=== PATIENT | female | born 1970 | race Caucasian/White ===

== ENCOUNTER 2024-07-07 22:39 | Emergency (ER) | payer BC ==
[2024-07-07] MEDS ORDERED: Morphine 4 MG/ML VIAL ONE (23:20)
[2024-07-07] MEDS ORDERED: Ondansetron PF 4 MG/2 ML Vial ONE (23:20)
[2024-07-07] MEDS ORDERED: Sodium Chloride 0.9% 1,000 ML ONE (23:20)
[2024-07-07 23:24] LABS: #Eosinphils 0.3 thou/uL (0.0-0.7); #Lymphocytes 4.1 thou/uL (1.20-3.40); #Monocytes 0.6 thou/uL (0.11-0.59); #Neutrophils 3.4 thou/uL (1.40-6.50); %Basophils 0.5 % (0.0-1.0); %Eosinophils 3.7 % (0.0-10.0); %Lymphocytes 48.3 % (21.0-51.0); %Neutrophils 40.5 % (42.0-75.0); Hematocrit 37.7 % (36.0-47.0); Hemoglobin 11.8 g/dL (12.0-16.0); Mean Corpuscular HGB CONC 31.3 g/dL (32.0-36.0); Mean Corpuscular Hemoglobin 26.4 pg (27.0-31.0); Mean Corpuscular Volume 84.5 fl (78.0-98.0); Mean Platelet Volume 7.2 fL (7.4-10.4); Platelet Count 254 10x3/uL (130-400); Red Blood Cell (RBC) Count 4.46 mill/uL (4.20-5.40); White Blood Cell (WBC) Count 8.4 10x3/uL (4.8-10.8)
[2024-07-07 23:46] LABS: Troponin I Less than 0.010 ng/mL (< 0.028)
[2024-07-07 23:50] LABS: ALT (SGPT) 10 U/L (8-55); AST (SGOT) 12 U/L (5-34); Albumin 3.5 g/dL (3.5-5.0); Alkaline Phosphatase 97 U/L (40-110); Anion Gap 17 mmol/L (10-20); BUN (Urea Nitrogen) 12 mg/dL (9.8-20.1); Bilirubin, Total 0.3 mg/dL (0.2-1.2); Calc. Creatinine Clearance 0 mL/min (70-130); Calcium 9.2 mg/dL (7.8-10.44); Carbon Dioxide 21 mmol/L (22-29); Chloride 111 mmol/L (98-107); Estimated GFR 64; Globulin 3.8 g/dL (2.4-3.5); Glucose 159 mg/dL (70-105); Potassium 3.5 mmol/L (3.5-5.1); Protein, Total 7.3 g/dL (6.0-8.3); Sodium 145 mmol/L (136-145)
== END 2024-07-08 00:55 | disposition home or self-care (01) ==
LOC: MADERS 22:39
DX: I10 Essential (primary) hypertension (principal); D64.9 Anemia, unspecified; M54.6 Pain in thoracic spine; E11.65 Type 2 diabetes mellitus with hyperglycemia; Z79.899 Other long term (current) drug therapy; Z79.4 Long term (current) use of insulin
CPT/HCPCS: 71046; 80053; 84484; 85025; 85379; 96361; 96374; 96375; J2272; J2405; J7030